=== PATIENT | female | born 1950 | race Caucasian/White ===

== ENCOUNTER 2019-02-16 13:17 | Emergency (ER) | payer MEDICARE ==
[2019-02-16] MEDS ORDERED: Ketorolac *IM* INJ* 60 MG/2 ML VIAL IM ONE (14:09)
[2019-02-16] MEDS ORDERED: predniSONE TAB* 10 MG PO ONE (14:09)
[2019-02-16] MEDS ORDERED: Diazepam TAB(*) 5 MG PO ONE (14:09)
--- NOTE | 2019-02-16 14:19 | ED ---
Back Pain - HPI Summary HPI Summary: 68 year old F patient presenting to [facility] accompanied by with a chief complaint of lower left back pain described as a cramp feeling due to a pickle ball injury since 1200 on 02/09/19 rated at 9/10 in severity, per triage. Patient reports pain radiates into left thigh since two days ago, 02/14/19, and that lying down now, the pain radiates along the groin on the left side. Patient reports she felt a small bump in her back near the wing of the ilium a week ago and last night, 02/15/19, she felt sore but still played Foxwordy this morning after taking 2 ibuprofens at 0900. Patient reports she barely got through the game but the pain increased in her left thigh leading to her inability to stand straight and difficulty in ambulating. Patient reports she went to [facility] where she was prescribed a medication and sent home. At 1100 today, 02/16/19, she took a couple of Tylenols and a few minutes later she took the prescribed medication which she reports did nothing except possibly numbing the lateral side of her left leg. Patient reports she is most comfortable leaning on her cane and when she is standing and that it hurts when she is lying down. Patient reports lightheadedness possibly due to the movement during the physical exam. Pt denies any fever, diaphoresis, chills, erythema of eyes, sore throat, CP, SOB, cough, abdominal pain, N/V, dysuria, hematuria, myalgia, edema , rash, or dizziness. Symptoms aggravated by lying down and moving. Symptoms alleviated by standing up. No hx kidney stones. - History of Current Complaint Chief Complaint: EDBackInjuryPain Stated Complaint: LOWER LEFT BACK/SIDE MUSCLE PAINS PER PT Time Seen by Provider: 02/16/19 13:57 Hx Obtained From: Patient Onset/Duration: Lasting Days, Still Present Onset/Duration: Started Days Ago, Still Present Pain Intensity: 9 Pain Scale Used: 0-10 Numeric Aggravating Symptom(s): Movement, Walking, Other Alleviating Symptom(s): Position - leaning on cane, standing Associated Signs And Symptoms: Positive: Other - Patient reports lightheadedness , thigh and groin pain. Patient denies any diaphoresis, chills, erythema of eyes , sore throat, CP, SOB, cough, N/V, dysuria, hematuria, myalgia, edema, rash, or dizziness. Negative: Fever, Abdominal Pain - Allergies/Home Medications Allergies/Adverse Reactions: Allergies Allergy/AdvReac Type Severity Reaction Status Date / Time Penicillins Allergy Rash Verified 02/16/19 14:33 PMH/Surg Hx/FS Hx/Imm Hx Endocrine/Hematology History: Denies: Hx Diabetes Cardiovascular History: Denies: Hx Hypertension, Hx Pacemaker/ICD Respiratory History: Denies: Hx Asthma History: Denies: Hx Renal Disease Musculoskeletal History: Reports: Hx Arthritis - NECK, HANDS, HIPS, KNEES, FEET - PSORIATIC ARTHRITIS Sensory History: Reports: Hx Contacts or Glasses - READING Denies: Hx Hearing Aid Opthamlomology History: Reports: Hx Contacts or Glasses - READING Psychiatric History: Denies: Hx Panic Disorder - Surgical History Surgery Procedure, Year, and Place: 1959 APPY;. 1993 RIGHT TR[place];. 1995 FULL RT HIP PLACEMENT- [facility] [place];. 2008 REVISION RT HIP- [place];. 2011 TOTAL HIP REPLACEMENT LT HIP- [place];. 2012- LEFT WRIST CARPAL TUNNEL RELEASE- [place]; Hx Anesthesia Reactions: No Infectious Disease History: No Infectious Disease History: Denies: Traveled Outside the [place] in Last 30 Days - Family History Known Family History: Positive: Other - Atrial fibrillation, aortic aneurysm, blood clots - Social History Alcohol Use: Weekly Alcohol Amount: 10 DRINKS WEEKLY Hx Substance Use: No Substance Use Type: Reports: None Hx Tobacco Use: No Smoking Status (MU): Never Smoked Tobacco Review of Systems Negative: Fever, Chills, Skin Diaphoresis Negative: Erythema Negative: Sore Throat Negative: Chest Pain Negative: Shortness Of Breath, Cough Negative: Abdominal Pain, Vomiting, Nausea Negative: dysuria, hematuria Positive: Other - Back pain, groin pain, thigh pain. Negative: Myalgia, Edema Negative: Rash Neurological: Other - lightheadedness; denies dizziness Positive: Other All Other Systems Reviewed And Are Negative: Yes Physical Exam - Summary Physical Exam Summary: Constitutional: Well-developed, Well-nourished, Alert. (-) Distressed Skin: Warm, Dry HENT: Normocephalic; Atraumatic Eyes: Conjunctiva normal Neck: Musculoskeletal ROM normal neck. (-) JVD, (-) Stridor, (-) Tracheal deviation Cardio: Rhythm regular, rate normal, Heart sounds normal; Intact distal pulses; The pedal pulses are 2+ and symmetric. Radial pulses are 2+ and symmetric. (-) Murmur Pulmonary/Chest wall: Effort normal. (-) Respiratory distress, (-) Wheezes, (-) Rales Abd: Soft, (-) tenderness, (-) Distension, (-) Guarding, (-) Rebound Musculoskeletal: No cva tenderness, lower extremity strength is 5 bilaterally, active range of motion is diminished but it's chronic for her Lymph: (-) Cervical adenopathy Neuro: Alert, Oriented x3 Psych: Mood and affect Normal Triage Information Reviewed: Yes Vital Signs On Initial Exam: Initial Vitals Temp Pulse Resp BP Pulse Ox 98.5 F 77 16 156/72 100 02/16/19 13:19 02/16/19 13:19 02/16/19 13:19 02/16/19 13:19 02/16/19 13:19 Vital Signs Reviewed: Yes Diagnostics - Vital Signs Vital Signs Temp Pulse Resp BP Pulse Ox 02/16/19 13:19 98.5 F 77 16 156/72 100 - Laboratory Lab Statement: Any lab studies that have been ordered have been reviewed, and results considered in the medical decision making process. - Ultrasound DVT Ultrasound Interpretation Completed By: Radiologist Summary of Ultrasound Findings: Per radiologist,. NO EVIDENCE OF DEEP VENOUS THROMBOSIS IS IDENTIFIED. ED physician has reviewed this imaging report. Re-Evaluation - Re-Evaluation First Eval Re-Evaluation Time: 16:20 Comment: Physician discusses discharge with patient. Back Pain Course/Dx - Course Course Of Treatment: 68 year old F patient presenting to [facility] accompanied by with a chief complaint of lower left back pain described as a cramp feeling due to a pickle ball injury since 1200 on 02/09/19 rated at 9/10 in severity, per triage. Patient reports pain radiates into left thigh since two days ago, 02/14/19, and that lying down now, the pain radiates along the groin on the left side. Patient reports she felt a small bump in her back near the wing of the ilium a week ago and last night, 02/15/19, she felt sore but still played Foxwordy this morning after taking 2 ibuprofens at 0900. Patient reports she barely got through the game but the pain increased in her left thigh leading to her inability to stand straight and difficulty in ambulating. Patient reports she went to [facility] where she was prescribed a medication and sent home. At 1100 today, 02/16/19, she took a couple of Tylenols and a few minutes later she took the prescribed medication which she reports did nothing except possibly numbing the lateral side of her left leg. Patient reports she is most comfortable leaning on her cane and when she is standing and that it hurts when she is lying down. Patient reports lightheadedness possibly due to the movement during the physical exam. Pt denies any fever, diaphoresis, chills, erythema of eyes, sore throat, CP, SOB, cough, abdominal pain, N/V, dysuria, hematuria, myalgia, edema, rash, or dizziness. Symptoms aggravated by lying down and moving. Symptoms alleviated by standing up. No hx kidney stones. Physical exam reveals no abnormalities except for No cva tenderness, lower extremity strength is 5 bilaterally, and active range of motion is diminished but it's chronic for her. Patient was given 5 mg Diazepam PO, 60 mg Ket. DVT US reveals NO EVIDENCE OF DEEP VENOUS THROMBOSIS IS IDENTIFIED. Patient is neurologically intact and does not suspect cauda equina syndrome. Physician discusses discharge with patient who agrees. Patient will be discharged and follow up with [facility] and primary care provider within 3 days. - Diagnoses Provider Diagnoses: Sciatica Discharge - Sign-Out/Discharge Documenting (check all that apply): Patient Departure - discharge Patient Received Moderate/Deep Sedation with Procedure: No - Discharge Plan Condition: Stable Disposition: HOME Prescriptions: Diazepam TAB(*) [Valium TAB(*)] 5 mg PO TID PRN #10 tab MDD 3 PRN Reason: Spasms - Muscle Ketorolac TAB * [Toradol TAB *] 10 mg PO Q6H #20 tab predniSONE TAB* [Deltasone 20 MG TAB*] 20 mg PO DAILY #4 tab Patient Education Materials: Sciatica (ED) Referrals: Maria Teresa Garnica MD [Primary Care Provider] - 3 Days [facility] [Outside] - 3 Days Additional Instructions: Follow up with primary care provider and [facility] within 2-3 days. Stop playing pickle ball until all symptoms resolve. Return to ED for any new or worsening symptoms. - Attestation Statements Document Initiated by Scribe: Yes Documenting Scribe: Lidya Lopez Provider For Whom Scribe is Documenting (Include Credential): Dr. Adán Bernabe MD Scribe Attestation: ILidya, scribed for Dr. Adán Bernabe MD on 02/16/19 at 2332. Status of Scribe Document: Ready
[2019-02-16 17:15] VITALS: BP 144/70
== END 2019-02-16 17:14 | disposition home or self-care (01) ==
LOC: ED 13:17
DX: M54.42 Lumbago with sciatica, left side (principal); R42 Dizziness and giddiness; L40.50 Arthropathic psoriasis, unspecified; Z96.643 Presence of artificial hip joint, bilateral; Z88.0 Allergy status to penicillin
CPT/HCPCS: 96372; 99282; A9270-GY; J1885; J7512

== ENCOUNTER 2019-02-24 04:10 | Emergency (ER) | payer MEDICARE ==
--- NOTE | 2019-02-24 05:19 | ED ---
Lower Extremity - HPI Summary HPI Summary: Patient is a 68 y/o F presenting to ED with complaints of LLE/left hip/left buttock pain. She states that a couple of weeks ago, she pulled a muscle playing pickle ball. She continued to play at the time. She felt some pain in her LLE. A week ago yesterday, she was playing pickleball and felt excruciating pain. Patient denies fall, weakness, or difficulty with ambulation. She states that she cannot sleep tonight due to severity of the pain. Patient additionally states that the patient has spread to other areas. She states that she has not had a bowel movement for a week but did have a BM in the ED. She reports normal hydration and some slight decreased appetite. Patient was treated at [facility] ED for same Sx and followed up with PCP. She was given prednisone and vailum in ED. She denies back surgeries, patient has had appendectomy. PSHx of two hip replacements. On triage, pain is rated 8/10, patient states that the pain is worse when lying down and when she is trying to sleep. 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 Home medications and allergies are reviewed. is present in the room. - History of Current Complaint Stated Complaint: PAIN PER PT Hx Obtained From: Patient Mechanism Of Injury: Other - pulled muscle Onset of Pain: Minutes, Prior to Arrival Onset/Duration: Still Present Severity Initially: Mild Severity Currently: Severe Pain Intensity: 8 Pain Scale Used: 0-10 Numeric Timing: Constant, Lasting Weeks Location: Is Discrete @ - LLE/left thigh/left buttocks Associated Signs And Symptoms: Positive: Other - negative - fall, difficulty ambulating; positive - constipation. Negative: Weakness Aggravating Factor(s): Other - lying down, falling asleep Alleviating Factor(s): Nothing - Allergies/Home Medications Allergies/Adverse Reactions: Allergies Allergy/AdvReac Type Severity Reaction Status Date / Time Penicillins Allergy Rash Verified 02/24/19 04:16 Home Medications: Home Medications Acetaminophen [Tylenol Extra Strength] 1,000 mg PO Q8H PRN 02/24/19 [History Confirmed 02/24/19] Cholecalciferol (Vitamin D3) [Vitamin D3] 2,000 units PO DAILY 02/24/19 [ History Confirmed 02/24/19] Ketorolac TAB * [Toradol TAB *] 10 mg PO Q6H PRN 02/24/19 [History Confirmed ] Melatonin 3 mg PO BEDTIME PRN 02/24/19 [History Confirmed 02/24/19] Methocarbamol 750 mg PO TID PRN 02/24/19 [History Confirmed 02/24/19] PMH/Surg Hx/FS Hx/Imm Hx Endocrine/Hematology History: Denies: Hx Diabetes Cardiovascular History: Denies: Hx Hypertension, Hx Pacemaker/ICD Respiratory History: Denies: Hx Asthma History: Denies: Hx Renal Disease Musculoskeletal History: Reports: Hx Arthritis - NECK, HANDS, HIPS, KNEES, FEET - PSORIATIC ARTHRITIS Sensory History: Reports: Hx Contacts or Glasses - READING Denies: Hx Hearing Aid Opthamlomology History: Reports: Hx Contacts or Glasses - READING Psychiatric History: Denies: Hx Panic Disorder - Surgical History Surgery Procedure, Year, and Place: 1959 APPY;. 1993 RIGHT TROCHANTERIC OSTEOTOMY[place];. 1995 [place] [facility] [place]. 2008 REVISION RT HIP[place];. 2011 TOTAL HIP REPLACEMENT LT HIP- [place];. 2013- LEFT WRIST CARPAL TUNNEL RELEASE- [place]; Hx Anesthesia Reactions: No Infectious Disease History: No Infectious Disease History: Denies: Traveled Outside the [place] in Last 30 Days - Family History Known Family History: Positive: Other - Atrial fibrillation, aortic aneurysm, blood clots - Social History Alcohol Use: Daily Alcohol Amount: beer or wine with dinner Hx Substance Use: No Substance Use Type: Reports: Marijuana Hx Tobacco Use: No Smoking Status (MU): Never Smoked Tobacco Review of Systems Gastrointestinal: Other - positive - decreased appetite Genitourinary: Other - positive - constipation Musculoskeletal: Other - positive - LLE/left thigh/left buttocks pain; negative - fall, difficulty ambulating Negative: Weakness All Other Systems Reviewed And Are Negative: Yes Physical Exam - Summary Physical Exam Summary: Constitutional: Well-developed, Well-nourished, Alert. (-) Distressed Skin: Warm, Dry. No breaks in skin, no ecchymosis HENT: Normocephalic; Atraumatic Eyes: Conjunctiva normal Neck: Musculoskeletal ROM normal neck. (-) JVD, (-) Stridor, (-) Tracheal deviation Cardio: Rhythm regular, rate normal, Heart sounds normal; Intact distal pulses; The pedal pulses are 2+ and symmetric. Radial pulses are 2+ and symmetric. Pulmonary/Chest wall: Effort normal. (-) Respiratory distress, (-) Wheezes, (-) Rales Abd: Soft, (-) tenderness, (-) Distension, (-) Guarding, (-) Rebound Musculoskeletal: No midline or para-spinal tenderness of the lumbar spine. Patient has no local pin-point tenderness. She has pain at the anterior and lateral compartments of her left thigh, but nothing is specifically elicited on exam. (-) Edema Neuro: Alert, Oriented x3 Psych: Mood and affect Normal Triage Information Reviewed: Yes Vital Signs On Initial Exam: Initial Vitals Temp Pulse Resp BP Pulse Ox 99.0 F 72 16 164/96 98 02/24/19 04:10 02/24/19 04:10 02/24/19 04:10 02/24/19 04:10 02/24/19 04:10 Vital Signs Reviewed: Yes Diagnostics - Vital Signs Vital Signs Temp Pulse Resp BP Pulse Ox 02/24/19 04:10 99.0 F 72 16 164/96 98 - Laboratory Lab Statement: Any lab studies that have been ordered have been reviewed, and results considered in the medical decision making process. Lower Extremity Course/Dx - Course Course Of Treatment: Patient is a 68 y/o F presenting to ED with complaints of worsened LLE/left hip/left buttock pain as a result of an old injury. Patient denies fall, weakness, or difficulty with ambulation. She states that she has not had a bowel movement for a week but did have a BM in the ED. She reports normal hydration and some slight decreased appetite. Patient was treated at [facility] ED for same Sx and followed up with PCP. She was given prednisone and vailum in ED. On physical exam, no midline or para-spinal tenderness of the lumbar spine. Patient has no local pin-point tenderness. She has pain at the anterior and lateral compartments of her left thigh, but nothing is specifically elicited on exam. No skin break, no ecchymosis noted. Patient is discharged to home. She is advised to increase her fiber intake to alleviate her constipation and to treat pain with regular Motrin, follow up with PCP, and get outpatient MRI for her Sx. - Diagnoses Provider Diagnoses: Musculoskeletal pain Discharge - Sign-Out/Discharge Documenting (check all that apply): Patient Departure - discharge Patient Received Moderate/Deep Sedation with Procedure: No - Discharge Plan Condition: Good Disposition: HOME Patient Education Materials: Musculoskeletal Pain (ED) Referrals: Maria Teresa Garnica MD [Primary Care Provider] - - Billing Disposition and Condition Condition: GOOD Disposition: Home - Attestation Statements Document Initiated by Scribe: Yes Documenting Scribe: TALISHA COON Provider For Whom Jesus is Documenting (Include Credential): DONNA ACOSTA MD Scribe Attestation: TALISHA Peters, scribed for DONNA ACOSTA MD on 02/24/19 at 0704. Scribe Documentation Reviewed: Yes Provider Attestation: The documentation as recorded by the TALISHA reeves accurately reflects the service I personally performed and the decisions made by me, DONNA ACOSTA MD Status of Scribe Document: Viewed
[2019-02-24 06:31] VITALS: BP 156/88
== END 2019-02-24 06:30 | disposition home or self-care (01) ==
LOC: ED 04:10
DX: M79.18 Myalgia, other site (principal); Z79.899 Other long term (current) drug therapy; Z88.0 Allergy status to penicillin
CPT/HCPCS: 99282